=== PATIENT | female | born 1985 ===

== ENCOUNTER 2022-02-10 18:42 | Emergency (ER) | payer SELFPAY ==
[2022-02-10 20:07] LABS: CARBON DIOXIDE,CO2 28.9 mmol/L (21.0-32.0); POTASSIUM,K 3.2 mmol/L (3.5-5.1)
== END 2022-02-10 20:45 | disposition home or self-care (01) ==
LOC: MW.ED 18:42
DX: N83.202 Unspecified ovarian cyst, left side (principal); N83.201 Unspecified ovarian cyst, right side; Z88.1 Allergy status to other antibiotic agents
CPT/HCPCS: 36415; 76830; 76830-26; 80053; 81003; 83690; 84703; 85025; 99284